=== PATIENT | female | born 1985 | race Hispanic/Latino ===

== ENCOUNTER 2018-10-16 09:22 | Emergency (ER) | payer OTHER ==
[2018-10-16] MEDS ORDERED: CLINDAMYCIN HCL 150 MG CAP ONE (09:37)
[2018-10-16] MEDS ORDERED: ACETAMINOPHEN EXTRA STRENGTH 500 MG TABLET ONE (09:38)
== END 2018-10-16 10:40 | disposition home or self-care (01) ==
LOC: EDH 09:22
DX: J03.90 Acute tonsillitis, unspecified (principal); Z79.899 Other long term (current) drug therapy